=== PATIENT | male | born 1960 | race Caucasian/White ===

== ENCOUNTER 2017-04-21 14:44 | Emergency (ER) | payer BC ==
[2017-04-21 16:20] LABS: Hematocrit 47 % (42-52); Mean Corpuscular HGB Conc 34 g/dl (31-36); Mean Corpuscular Hemoglobin 31 pg (27-31); Mean Corpuscular Volume 91 fL (80-94); Mean Platelet Volume 9 um3 (7.4-10.4); Red Cell Distribution Width 14 % (10.5-15)
[2017-04-21 16:31] LABS: Albumin 3.9 g/dL (3.2-5.2); Calcium 8.9 mg/dL (8.6-10.3); EGFR Non-African American 62.2 (>60); Globulin 2.4 g/dL (2-4); Potassium 3.8 mmol/L (3.5-5.0); Total Bilirubin 0.3 mg/dL (0.2-1.0); Total Protein 6.3 g/dL (6.4-8.9)
[2017-04-21 16:46] LABS: Urine Bilirubin Negative (Negative); Urine Glucose Negative (Negative); Urine Nitrite Negative (Negative)
[2017-04-21 17:03] LABS: TSH (Thyroid Stimulating Horm) 1.09 mcIU/mL (0.34-5.60)
[2017-04-21 18:07] VITALS: BP 137/79
--- NOTE | 2017-04-21 21:48 | ED ---
Esther Howard Emily, scribed for Edgar Botson MD on 04/21/17 at 1551 . Complex/Multi-Sys Presentation - HPI Summary HPI Summary: This patient is a 56 year old M [facility] by with a chief complaint of near syncope that lasted about 30 minutes this afternoon. The first 10 minutes were described as feeling faint and the last 20 minutes were described as feeling weak. Patient was mowing the lawn and then eating when CC started. He felt like he was going to fall and didnt have any muscle control. The patient rates the pain 0/10 in severity. Symptoms aggravated by nothing. Symptoms alleviated by spontaneous resolution. Patient reports anxiety , lightheadedness, room-spinning, drainage in ear (worse on left), and sore joints. Patient denies pain, arm numbness, and palpitations. Medication non- compliance with HTN and HLD medications. Tobacco abuse disorder ( PPD). - History Of Current Complaint Chief Complaint: EDWeakness Time Seen by Provider: 04/21/17 15:33 Hx Obtained From: Patient, Family/Gas Pipe Layer Onset/Duration: Sudden Onset, Lasting Minutes - 30, Resolved Timing: Minutes Severity Currently: None Severity Initially: Mild Aggravating Factor(s): Nothing Alleviating Factor(s): Spontaneous resolution Associated Signs And Symptoms: Positive: Other - Anxiety, lightheadedness, room- spinning, drainage in ear (worse on left), and sore joints. Negative pain, arm numbness, and palpitations - Allergies/Home Medications Allergies/Adverse Reactions: Allergies Allergy/AdvReac Type Severity Reaction Status Date / Time No Known Allergies Allergy Verified 04/21/17 15:50 PMH/Surg Hx/FS Hx/Imm Hx Endocrine/Hematology History: Denies: Hx Diabetes Cardiovascular History: Reports: Hx Angina, Hx Hypercholesterolemia, Hx Hypertension - WELL CONTROLLED, Other Cardiovascular Problems/Disorders - R BBB Denies: Hx Pacemaker/ICD Respiratory History: Denies: Hx Asthma Sensory History: Reports: Hx Contacts or Glasses - GLASSES Denies: Hx Hearing Aid Opthamlomology History: Reports: Hx Contacts or Glasses - GLASSES Neurological History: Reports: Hx Migraine - RARE Psychiatric History: Denies: Hx Panic Disorder - Cancer History Cancer Type, Location and Year: SKIN CA - Surgical History Surgery Procedure, Year, and Place: TONSILLECTOMY 1964 [facility]. APPENDECTOMY 1968 [facility] Hx Anesthesia Reactions: No - Immunization History Date of Tetanus Vaccine: Unk Date of Influenza Vaccine: None Infectious Disease History: Denies: Traveled Outside the [place] in Last 30 Days - Family History Known Family History: Positive: Other - Negative skin cancer Negative: Cardiac Disease - Social History Alcohol Use: Occasionally Substance Use Type: Reports: None Smoking Status (MU): Current Every Day Smoker Type: Cigarettes Amount Used/How Often: 1/2 PACK DAY Length of Time of Smoking/Using Tobacco: 41 YEARS Have You Smoked in the Last Year: Yes Review of Systems Positive: Other - Drainage in ear (worse on left). Negative: Palpitations Positive: Other - Sore joints. Negative pain Neurological: Other - Lightheadedness and room-spinning Positive: Syncope - Near. Negative: Numbness Positive: Anxious All Other Systems Reviewed And Are Negative: Yes Physical Exam Triage Information Reviewed: Yes Vital Signs On Initial Exam: Initial Vitals Temp Pulse Resp BP Pulse Ox 97.9 F 90 17 170/82 96 04/21/17 14:58 04/21/17 14:58 04/21/17 14:58 04/21/17 14:58 04/21/17 14:58 Vital Signs Reviewed: Yes Appearance: Positive: Well-Appearing, No Pain Distress Skin: Positive: Warm, Skin Color Reflects Adequate Perfusion, Dry Head/Face: Positive: Normal Head/Face Inspection Eyes: Positive: Other: - Well healed scar on left side of face ENT: Positive: Other - Impacted cerumen in right ear Neck: Positive: Supple, Nontender Respiratory/Lung Sounds: Positive: Clear to Auscultation, Breath Sounds Present Cardiovascular: Positive: RRR Abdomen Description: Positive: Nontender, Soft Bowel Sounds: Positive: Present Musculoskeletal: Positive: Normal Neurological: Positive: Normal, Sensory/Motor Intact, Alert, Oriented to Person Place, Time, CN Intact II-III Psychiatric: Positive: Affect/Mood Appropriate Diagnostics - Vital Signs Vital Signs Temp Pulse Resp BP Pulse Ox 04/21/17 14:58 97.9 F 90 17 170/82 96 - Laboratory Lab Results: Lab Results 04/21/17 04/21/17 04/21/17 Range/Units 16:00 16:00 16:00 WBC 11.0 H (3.5-10.8) 10^3/ul RBC 5.20 (4.0-5.4) 10^6/ul Hgb 16.0 (14.0-18.0) g/dl Hct 47 (42-52) % MCV 91 (80-94) fL MCH 31 (27-31) pg MCHC 34 (31-36) g/dl RDW 14 (10.5-15) % Plt Count 242 (150-450) 10^3/ul MPV 9 (7.4-10.4) um3 Neut % (Auto) 68.0 (38-83) % Lymph % (Auto) 21.5 L (25-47) % [place] % (Auto) 7.1 (1-9) % Eos % (Auto) 2.1 (0-6) % Baso % (Auto) 1.3 (0-2) % Absolute Neuts (auto) 7.5 (1.5-7.7) 10^3/ul Absolute Lymphs (auto) 2.4 (1.0-4.8) 10^3/ul Absolute Monos (auto) 0.8 (0-0.8) 10^3/ul Absolute Eos (auto) 0.2 (0-0.6) 10^3/ul Absolute Basos (auto) 0.1 (0-0.2) 10^3/ul Absolute Nucleated RBC 0.02 10^3/ul Nucleated RBC % 0.2 Sodium 136 (133-145) mmol/L Potassium 3.8 (3.5-5.0) mmol/L Chloride 104 (101-111) mmol/L Carbon Dioxide 26 (22-32) mmol/L Anion Gap 6 (2-11) mmol/L BUN 12 (6-24) mg/dL Creatinine 1.20 H (0.67-1.17) mg/dL Est GFR ( Amer) 80.0 (>60) Est GFR (Non-Af Amer) 62.2 (>60) BUN/Creatinine Ratio 10.0 (8-20) Glucose 98 (70-100) mg/dL Lactic Acid 1.0 (0.5-2.0) mmol/L Calcium 8.9 (8.6-10.3) mg/dL Magnesium 2.0 (1.9-2.7) mg/dL Total Bilirubin 0.30 (0.2-1.0) mg/dL AST 14 (13-39) U/L ALT 10 (7-52) U/L Alkaline Phosphatase 64 (34-104) U/L Total Creatine Kinase 89 (10-223) U/L Troponin I 0.00 (<0.04) ng/mL Total Protein 6.3 L (6.4-8.9) g/dL Albumin 3.9 (3.2-5.2) g/dL Globulin 2.4 (2-4) g/dL Albumin/Globulin Ratio 1.6 (1-3) TSH 1.09 (0.34-5.60) mcIU/mL Urine Color Urine Appearance Urine pH (5-9) Ur Specific [place] (1.010-1.030) Urine Protein (Negative) Urine Ketones (Negative) Urine Blood (Negative) Urine Nitrate (Negative) Urine Bilirubin (Negative) Urine Urobilinogen (Negative) Ur Leukocyte Esterase (Negative) Urine Glucose (Negative) 04/21/17 04/21/17 Range/Units 16:30 18:30 WBC (3.5-10.8) 10^3/ul RBC (4.0-5.4) 10^6/ul Hgb (14.0-18.0) g/dl Hct (42-52) % MCV (80-94) fL MCH (27-31) pg MCHC (31-36) g/dl RDW (10.5-15) % Plt Count (150-450) 10^3/ul MPV (7.4-10.4) um3 Neut % (Auto) (38-83) % Lymph % (Auto) (25-47) % [place] % (Auto) (1-9) % Eos % (Auto) (0-6) % Baso % (Auto) (0-2) % Absolute Neuts (auto) (1.5-7.7) 10^3/ul Absolute Lymphs (auto) (1.0-4.8) 10^3/ul Absolute Monos (auto) (0-0.8) 10^3/ul Absolute Eos (auto) (0-0.6) 10^3/ul Absolute Basos (auto) (0-0.2) 10^3/ul Absolute Nucleated RBC 10^3/ul Nucleated RBC % Sodium (133-145) mmol/L Potassium (3.5-5.0) mmol/L Chloride (101-111) mmol/L Carbon Dioxide (22-32) mmol/L Anion Gap (2-11) mmol/L BUN (6-24) mg/dL Creatinine (0.67-1.17) mg/dL Est GFR ( Amer) (>60) Est GFR (Non-Af Amer) (>60) BUN/Creatinine Ratio (8-20) Glucose (70-100) mg/dL Lactic Acid (0.5-2.0) mmol/L Calcium (8.6-10.3) mg/dL Magnesium (1.9-2.7) mg/dL Total Bilirubin (0.2-1.0) mg/dL AST (13-39) U/L ALT (7-52) U/L Alkaline Phosphatase (34-104) U/L Total Creatine Kinase (10-223) U/L Troponin I 0.00 (<0.04) ng/mL Total Protein (6.4-8.9) g/dL Albumin (3.2-5.2) g/dL Globulin (2-4) g/dL Albumin/Globulin Ratio (1-3) TSH (0.34-5.60) mcIU/mL Urine Color Straw Urine Appearance Clear Urine pH 6.0 (5-9) Ur Specific [place] 1.005 L (1.010-1.030) Urine Protein Negative (Negative) Urine Ketones Negative (Negative) Urine Blood Negative (Negative) Urine Nitrate Negative (Negative) Urine Bilirubin Negative (Negative) Urine Urobilinogen Negative (Negative) Ur Leukocyte Esterase Negative (Negative) Urine Glucose Negative (Negative) Result Diagrams: 04/21/17 16:00 04/21/17 16:00 Lab Statement: Any lab studies that have been ordered have been reviewed, and results considered in the medical decision making process. - EKG 1612 Cardiac Rate: NL - 86 BPM EKG Rhythm: Sinus Rhythm EKG Interpretation: RBBB Complex Multi-Symp Course/Dx Course Of Treatment: Mr. Mcdonnell experienced a near syncopal episode after coming in from riding the riding coach (it's not hot today). It lasted 10 - 20 minutes and then slowly improved. He felt very weak and lightheaded but did not faint, had no palpitations, chest pain or SOB and denied MAY or blurred vision. He was observed here on the monitor while labs were checked including a delayed troponin. He felt fine and remained stable. - Diagnoses Provider Diagnoses: Near syncope Discharge - Discharge Plan Condition: Stable Disposition: HOME Patient Education Materials: Near Syncope (ED) Referrals: Gonzalo Partida MD [Primary Care Provider] - 3 Days The documentation as recorded by the Esther rose Emily accurately reflects the service I personally performed and the decisions made by me, Edgar Boston MD.
== END 2017-04-21 19:41 | disposition home or self-care (01) ==
LOC: ED 14:44
DX: R55 Syncope and collapse (principal); F41.9 Anxiety disorder, unspecified; F17.210 Nicotine dependence, cigarettes, uncomplicated
CPT/HCPCS: 36415; 80053; 81003; 82550; 83605; 83735; 84443; 84484; 85025; 93005; 99283